=== PATIENT | female | born 1985 | race African-American/Black ===

== ENCOUNTER 2016-06-19 09:56 | Emergency (ER) | payer MEDICAID ==
[~2016-06-19] VITALS: Ht 162.6 cm; Wt 49.9 kg
[~2016-06-19 09:56] MED LIST: AMOXICILLIN500 MG ORAL; CEPHALEXIN500 MG ORAL; IBUPROFEN600 MG ORAL; KEFLEX500 MG ORAL; MACROBID100 MG ORAL; NKM; ZOFRAN ODT4 MG ORAL
[2016-06-19 10:23] VITALS: BP 118/79
[2016-06-19 11:20] LABS: APPEARANCE,URINE SLIGHTLY CLOUDY; KETONES,URINE NEGATIVE (NEGATIVE); LEUKOCYTE ESTERASE ,URINE 3+ (NEGATIVE); NITRITE,URINE POSITIVE (NEGATIVE); PH,URINE 6 (4.5-8.0); PROTEIN,URINE 2+ (NEGATIVE); UROBILINOGEN,URINE NORMAL MG/DL (0.0-1.0)
[2016-06-19 11:33] LABS: BACTERIA,URINE MODERATE /HPF; SQUAMOUS EPITHELIAL CELL,UR FEW /LPF (NONE/OCC); WBC,URINE 20-30 /HPF (0 - 2)
[2016-06-19] MEDS ORDERED: PHENAZOPYRIDIN200 MG ORAL (11:59)
[2016-06-19] MEDS ORDERED: KEFLEX500 MG ORAL (11:59)
[2016-06-19 12:00] VITALS: BP 116/69
[2016-06-19 12:04] VITALS: BP 116/69
--- NOTE | 2016-06-21 13:43 | Emergency Room Report ---
History of Present Illness General Chief Complaint: Female Urogenital Problems Source: Patient Present Illness HPI The patient is a 31-year-old female who presented after increased dysuria as well as frequency of urination. Patient had similar symptoms in the past when she had urinary tract infection. Patient thinks that she has a urinary tract infection at this time. The patient denies any vaginal discharge. Patient has had some mild upper respiratory congestion. She denied chest pain or shortness of breath. The patient had no fever and had not been vomiting. Allergies: Coded Allergies: No Known Allergies (Unverified , 12/17/13) Patient History Past Medical History: see triage record Last Menstrual Period: now- Now: No Reviewed Nursing Documentation: PMH: Agreed, PSxH: Agreed Nursing Documentation-PMH Past Medical History: No History, Except For Hx Cardiac Problems: No Hx Cancer: No Hx Gastrointestinal Problems: No Hx Neurological Problems: No Review of Systems All Other Systems: negative except mentioned in HPI Physical Exam Vital Signs Date Time Temp Pulse Resp B/P Pulse Ox O2 Delivery O2 Flow Rate FiO2 06/19/16 10:12 98.8 16 118/79 99 Room Air 06/19/16 10:23 75 General Appearance: well appearing, no apparent distress, alert, GCS 15 Head: normocephalic, atraumatic ENT: hearing grossly normal, normal voice Neck: full range of motion, supple Respiratory: no respiratory distress, speaking full sentences Gastrointestinal: normal inspection, normal bowel sounds, non tender Genitourinary: normal inspection, no CVA tenderness Musculoskeletal: normal inspection, back normal, no calf tenderness Neurologic: normal inspection, alert, oriented x3, responsive, normal gait Psychiatric: mood/affect normal Skin: no rash Medical Decision Making Diagnostic Impression: Primary Impression: UTI (urinary tract infection) ER Course Patient presented for dysuria. Differential diagnosis included was not limited to appendicitis, urinary tract infection, pelvic inflammatory disease, urethritis, herpes among others. Patient's benign exam and does not appear to require any further imaging or laboratory testing at this time. Urinalysis showed evidence of infection. Patient was given prescription for Keflex.Urine test was negative. The patient is advised to follow up with primary care doctor in 1-2 days. Patient is advised to return if any worsening condition or if any changes in status that are concerning. Last Vital Signs Date Time Temp Pulse Resp B/P Pulse Ox O2 Delivery O2 Flow Rate FiO2 2/13/17 12:04 98.8 69 16 116/69 99 Room Air Status: improved Disposition: HOME, SELF-CARE Condition: Stable Scripts Phenazopyridine Hcl* (PYRIDIUM*) 200 Mg Tablet 200 MG ORAL THREE TIMES A DAY, #14 TAB 0 Refills Prov: Salvador Goodman 06/19/16 Cephalexin* (KEFLEX*) 500 Mg Capsule 500 MG ORAL Q6H, #28 CAP 0 Refills Prov: Salvador Goodman 06/19/16 Referrals: NON PHYSICIAN (PCP) Patient Instructions: Urinary Tract Infection Salvador Goodman Jun 21, 2016 13:43
== END 2016-06-19 12:04 | disposition home or self-care (01) ==
LOC: EMR 10:30
DX: N39.0 Urinary tract infection, site not specified (principal)
CPT/HCPCS: 81003; 81025; 87086; 87181; 99284

== ENCOUNTER 2017-11-16 20:01 | Emergency (ER) | payer MEDICAID, OTHER ==
[~2017-11-16] VITALS: Ht 162.6 cm; Wt 49.9 kg
[~2017-11-16 20:01] MED LIST changes: +PHENAZOPYRIDIN200 MG ORAL
[2017-11-16 20:25] VITALS: BP 112/78
--- NOTE | 2017-11-16 21:42 | Emergency Room Report ---
History of Present Illness General Chief Complaint: Abdominal Pain Source: Patient Present Illness HPI Is a 32-year-old female with no significant past medical history. She presents with initially abdominal pain but to me chief complaint of generalized malaise and weakness. She says she a lot of stress and hasn't been eating much. Decreased appetite for less than a week. Said her urine is dark. Denies any nausea vomiting. Denies any fever chills but not suicidal homicidal. She checked in because she brought her daughter here for rash. Allergies: Coded Allergies: No Known Allergies (Unverified , 12/17/13) Patient History Past Medical History: see triage record, old chart reviewed Past Surgical History: other Pertinent Family History: none Social History: Denies: smoking Last Menstrual Period: UNK Now: No Immunizations: other Reviewed Nursing Documentation: PMH: Agreed; PSxH: Agreed Nursing Documentation-PMH Hx Cardiac Problems: No Hx Cancer: No Hx Gastrointestinal Problems: No Hx Neurological Problems: No Review of Systems Constitutional: Reports: malaise, weakness Eye: Denies: eye pain, blurred vision ENT: Denies: ear pain, nose congestion, throat swelling Respiratory: Denies: cough, shortness of breath Cardiovascular: Denies: chest pain, palpitations Gastrointestinal: Denies: abdominal pain, diarrhea, nausea, vomiting Musculoskeletal: Denies: back pain, joint pain Skin: Denies: rash Neurological: Denies: headache, numbness Endocrine: Denies: increased thirst, increased urine Hematologic/Lymphatic: Denies: easy bruising All Other Systems: negative except mentioned in HPI Physical Exam Vital Signs Date Time Temp Pulse Resp B/P (MAP) Pulse Ox O2 Delivery O2 Flow Rate FiO2 11/16/17 20:16 97.0 61 18 112/78 100 Room Air 97.0 vitals normal Sp02 EP Interpretation: reviewed, normal General Appearance: well appearing, no apparent distress, alert Head: normocephalic, atraumatic Eyes: bilateral eye PERRL, bilateral eye EOMI ENT: hearing grossly normal, normal pharynx Neck: full range of motion, supple, no meningismus Respiratory: chest non-tender, lungs clear, normal breath sounds Cardiovascular #1: regular rate, rhythm, no murmur Gastrointestinal: normal bowel sounds, non tender, no mass, no organomegaly, no bruit, non-distended Musculoskeletal: back normal, gait/station normal, normal range of motion Psychiatric: mood/affect normal Skin: warm/dry Medical Decision Making Diagnostic Impression: Primary Impression: UTI (urinary tract infection) Qualified Codes: N30.00 - Acute cystitis without hematuria Additional Impression: Stress and adjustment reaction ER Course Patient presents with stress reaction. No culture for 5150. She does have a urinary tract infection. We'll put on antibiotics. Last Vital Signs Date Time Temp Pulse Resp B/P (MAP) Pulse Ox O2 Delivery O2 Flow Rate FiO2 11/16/17 20:25 97.0 61 18 112/78 100 Room Air 97.0 Status: unchanged Disposition: HOME, SELF-CARE Condition: Stable Scripts Cephalexin* (KEFLEX*) 500 Mg Capsule 500 MG ORAL TID, #21 CAP Prov: ELIZABETH COOLEY M.D. 11/16/17 Additional Instructions: Follow-up with your doctor in 7 days. Return if symptom worsen. ELIZABETH COOLEY M.D. Nov 16, 2017 21:42
[2017-11-16 21:44] LABS: APPEARANCE,URINE CLEAR; BILIRUBIN, URINE NEGATIVE (NEGATIVE); GLUCOSE, URINE (UA) NEGATIVE (NEGATIVE); KETONES,URINE 3+ (NEGATIVE); LEUKOCYTE ESTERASE ,URINE 2+ (NEGATIVE); NITRITE,URINE POSITIVE (NEGATIVE); PH,URINE 5 (4.5-8.0); PROTEIN,URINE 1+ (NEGATIVE); UROBILINOGEN,URINE NORMAL MG/DL (0.0-1.0)
[2017-11-16 21:49] LABS: COLOR,URINE YELLOW
[2017-11-16] MEDS ORDERED: CEPHALEXIN500 MG ORAL (22:08)
[2017-11-16 22:29] VITALS: BP 112/78
== END 2017-11-16 22:29 | disposition home or self-care (01) ==
LOC: EMR 21:14
DX: N39.0 Urinary tract infection, site not specified (principal); F43.9 Reaction to severe stress, unspecified; R53.1 Weakness
CPT/HCPCS: 81003; 87086; 87181; 99283

== ENCOUNTER 2019-03-05 14:29 | Emergency (ER) | payer SELFPAY ==
[~2019-03-05] VITALS: Ht 160 cm; Wt 49.9 kg
[~2019-03-05 14:29] MED LIST changes: +AUGMENTIN 875-1 EAC1 ORAL
--- NOTE | 2019-03-05 14:41 | NUR ---
ED Nurse Note: PT WALKED IN TO ER TODAY FROM HOME. AOX4. PT C/O LEFT HAND RING FINGER PAIN X YESTERDAY. PT STATES SHE BELIEVES IT MAY BE AN INGROWN NAIL. ON ASSESSMENT, SOME SWELLING AND REDNESS NOTED BUT NO DISCHARGE OR BLEEDING. FULL ROM OF DIGIT. PT DENIES NUMBNESS OR TINGLING.
[2019-03-05 14:42] VITALS: BP 113/75
--- NOTE | 2019-03-05 15:31 | Emergency Room Report ---
History of Present Illness General Chief Complaint: Pain Source: Patient Present Illness HPI 33 YO female presents to the ED c/o 12/14 in severity pain, swelling and erythema to the side of the cuticle of her left ring finger x 2 days. Pt. reports specifically biting a hang nail from there several days prior. Pt. denies trauma or fall. Denies fevers, chills, paresthesias,or finger pad tenderness. Has been trying warm water soaks without relief. Allergies: Coded Allergies: No Known Allergies (Unverified , 02/11/18) Patient History Past Medical History: see triage record Past Surgical History: none Pertinent Family History: none Last Menstrual Period: 01/05/19 Reviewed Nursing Documentation: PMH: Agreed; PSxH: Agreed Nursing Documentation-PMH Past Medical History: No Stated History Hx Cardiac Problems: No Hx Cancer: No Hx Gastrointestinal Problems: No Hx Dialysis: Yes - kidney stone Hx Neurological Problems: No Review of Systems All Other Systems: negative except mentioned in HPI Physical Exam Vital Signs Date Time Temp Pulse Resp B/P (MAP) Pulse Ox O2 Delivery O2 Flow Rate FiO2 03/05/19 14:37 98.2 71 16 113/75 (88) 100 Room Air Sp02 EP Interpretation: reviewed, normal General Appearance: no apparent distress, alert, GCS 15, non-toxic Head: normocephalic, atraumatic Eyes: bilateral eye normal inspection, bilateral eye PERRL ENT: hearing grossly normal, normal voice Neck: full range of motion Respiratory: lungs clear, normal breath sounds, speaking full sentences Cardiovascular #1: regular rate, rhythm, normal capillary refill Musculoskeletal: back normal, gait/station normal, normal range of motion, non- tender Neurologic: alert, oriented x3, responsive, motor strength/tone normal, sensory intact, speech normal, grossly normal Psychiatric: judgement/insight normal Skin: other - left ring finger paronychia- no visible purulence, no fluctuance , no fingerpad tenderness. erythema, swelling and warmth only. Medical Decision Making PA Attestation Dr. Osborne is my supervising Physician whom patient management has been discussed with. Diagnostic Impression: Primary Impression: Paronychia ER Course 33 YO female presents to the ED c/o 12/14 in severity pain, swelling and erythema to the side of the cuticle of her left ring finger x 2 days. Pt. reports specifically biting a hang nail from there several days prior. Pt. denies trauma or fall. Denies fevers, chills, paresthesias,or finger pad tenderness. Has been trying warm water soaks without relief. Ddx considered but are not limited to cellulitis, paronychia, eponychia, ingrown toe nail, fracture, d/L, gout Vital signs: are WNL, pt. is afebrile H&PE are most consistent with left ring finger paronychia- no visible purulence , no fluctuance, no fingerpad tenderness. erythema, swelling and warmth only. ORDERS: none required at this time, the diagnosis is clinical ED INTERVENTIONS: -None provided at this time. DISCHARGE: At this time pt. is stable for d/c to home. Will provide printed patient care instructions, and any necessary prescriptions. Care plan and follow up instructions have been discussed with the patient prior to discharge. Last Vital Signs Date Time Temp Pulse Resp B/P (MAP) Pulse Ox O2 Delivery O2 Flow Rate FiO2 03/05/19 14:42 98.2 71 16 113/75 100 Room Air Disposition: HOME, SELF-CARE Condition: Stable Scripts Amoxicillin/Potassium Clav 875-125* (AUGMENTIN 875-125 TABLET*) 1 Each Tablet 1 TAB ORAL TWICE A DAY for 7 Days, #14 TAB Prov: Sol Sanchez 03/05/19 Mupirocin* (MUPIROCIN*) 22 Gm Oint...g. 1 APPLIC TOPIC THREE TIMES A DAY, #22 GM Prov: Sol Sanchez 03/05/19 Patient Instructions: Paronychia, [id number] Additional Instructions: Take medications as directed. Follow up with a Primary Care Provider in 3-5 days, even if your symptoms have resolved. Return sooner to ED if new symptoms occur, or current symptoms become worse. - Please note that this Emergency Department Report was dictated using [employer] center manager technology software, occasionally this can lead to erroneous entry secondary to interpretation by the dictation equipment. Sol Sanchez Mar 05, 2019 15:31
[2019-03-05] MEDS ORDERED: AUGMENTIN 875-1 EAC1 ORAL (15:34)
[2019-03-05] MEDS ORDERED: MUPIROCIN22 GM TOPIC (15:34)
[2019-03-05 15:51] VITALS: BP 122/74
--- NOTE | 2019-03-05 15:51 | NUR ---
ER DISCHARGE NOTE: Patient is cleared to be discharged per PA, pt is aox4, on room air, with stable vital signs. pt was given dc and prescription instructions, pt was able to verbalize understanding, pt id band removed. pt is able to ambulate with steady gait. pt took all belongings.
== END 2019-03-05 15:51 | disposition home or self-care (01) ==
LOC: EMR 15:29
DX: L03.012 Cellulitis of left finger (principal)
CPT/HCPCS: 99282

== ENCOUNTER 2019-03-30 11:41 | Emergency (ER) | payer SELFPAY ==
[~2019-03-30] VITALS: Ht 160 cm; Wt 49.0 kg
[~2019-03-30 11:41] MED LIST changes: +MUPIROCIN22 GM TOPIC
[2019-03-30] MEDS ORDERED: NKM (11:54)
[2019-03-30 11:57] VITALS: BP 125/78
[2019-03-30 13:38] LABS: APPEARANCE,URINE CLEAR; BILIRUBIN, URINE NEGATIVE (NEGATIVE); GLUCOSE, URINE (UA) NEGATIVE (NEGATIVE); KETONES,URINE 4+ (NEGATIVE); LEUKOCYTE ESTERASE ,URINE 2+ (NEGATIVE); NITRITE,URINE POSITIVE (NEGATIVE); PH,URINE 5 (4.5-8.0); PROTEIN,URINE 1+ (NEGATIVE); UROBILINOGEN,URINE NORMAL MG/DL (0.0-1.0)
[2019-03-30 13:50] LABS: COLOR,URINE YELLOW
[2019-03-30 13:57] VITALS: BP 130/80
--- NOTE | 2019-03-30 15:47 | Emergency Room Report ---
History of Present Illness General Chief Complaint: Vomiting Source: Patient Present Illness HPI 33-year-old female who is G3, P2 and no significant past medical history here complaining of 2 days of multiple bouts of nonbloody emesis and nausea. Patient denies abdominal pain, diarrhea and constipation, fever and chills. Denies drinking alcohol, or intake of new food. Denies recent travel or antibiotic use. Patient also has her daughter who presents with similar symptoms x2 days. Patient denies any urinary frequency, dysuria, hematuria reports that she does not recall her last menstrual period and reports that she took an IUD out about 1 month ago had few episodes of spotting right after however has not had her menses since. Denies chest pain, shortness of breath, palpitation, headache, dizziness. No tenderness or guarding noted upon palpation of her abdomen. Allergies: Coded Allergies: No Known Allergies (Unverified , 02/11/18) Patient History Past Medical History: see triage record Past Surgical History: unable to obtain Pertinent Family History: none Now: No Immunizations: UTD Reviewed Nursing Documentation: PMH: Agreed; PSxH: Agreed Nursing Documentation-PMH Past Medical History: No History, Except For Hx Cardiac Problems: No Hx Cancer: No Hx Gastrointestinal Problems: No Hx Dialysis: Yes - kidney stone Hx Neurological Problems: No Review of Systems All Other Systems: negative except mentioned in HPI Physical Exam Vital Signs Date Time Temp Pulse Resp B/P (MAP) Pulse Ox O2 Delivery O2 Flow Rate FiO2 03/30/19 11:51 98.4 60 20 117/75 (89) 100 Room Air Sp02 EP Interpretation: reviewed, normal General Appearance: no apparent distress, alert, GCS 15, non-toxic Head: normocephalic, atraumatic Eyes: bilateral eye normal inspection, bilateral eye PERRL ENT: hearing grossly normal, normal pharynx, no angioedema, normal voice Neck: full range of motion, supple, supple/symm/no masses Respiratory: chest non-tender, lungs clear, normal breath sounds, no rhonchi, no respiratory distress, speaking full sentences Cardiovascular #1: regular rate, rhythm, no edema, no murmur, normal capillary refill Cardiovascular #2: 2+ carotid (R), 2+ carotid (L), 2+ radial (R), 2+ radial (L) Gastrointestinal: normal bowel sounds, non tender, soft, no mass, non-distended , no guarding, no hernia, no pulsatile mass, no rebound Rectal: deferred Genitourinary: normal inspection, no CVA tenderness Musculoskeletal: back normal, normal range of motion, no calf tenderness, pelvis stable, gait/station normal, non-tender Neurologic: alert, motor strength/tone normal, oriented x3, sensory intact, responsive, speech normal Psychiatric: judgement/insight normal, memory normal, mood/affect normal, no suicidal/homicidal ideation Skin: no rash Lymphatic: no adenopathy Medical Decision Making PA Attestation All my diagnosis and treatment plans were reviewed ad discussed with my supervising physician Dr. Singer Diagnostic Impression: Primary Impression: Positive test Additional Impressions: Vomiting during UTI (urinary tract infection) ER Course 33-year-old female who is G3, P2 and no significant past medical history here complaining of 2 days of multiple bouts of nonbloody emesis and nausea. Patient denies abdominal pain, diarrhea and constipation, fever and chills. Denies drinking alcohol, or intake of new food. Denies recent travel or antibiotic use. Patient also has her daughter who presents with similar symptoms x2 days. Patient denies any urinary frequency, dysuria, hematuria reports that she does not recall her last menstrual period and reports that she took an IUD out about 1 month ago had few episodes of spotting right after however has not had her menses since. Denies chest pain, shortness of breath, palpitation, headache, dizziness. No tenderness or guarding noted upon palpation of her abdomen. Ddx considered but are not limited to: UTI, pyelonephritis, threatened , ectopic , molar , Vital signs: are WNL, pt. is afebrile H&PE are most consistent with: Uncomplicated UTI, vomiting during , positive test ORDERS: UA, beta hCG, CBC, CMP, type and screen, OB ultrasound, vitamins, Macrobid, Reglan ED INTERVENTIONS: NS bolus, Reglan DISCHARGE: At this time pt. is stable for d/c to home. Will provide printed patient care instructions, and any necessary prescriptions. Care plan and follow up instructions have been discussed with the patient prior to discharge. Take medication as directed, follow-up with your FIREBOAT OPERATOR as you are beta-hCG levels are elevated and may be falsely elevated however your 6 weeks and to need to have establish FIREBOAT OPERATOR for further evaluation during her . If worsening symptoms return to emergency room. CT/MRI/US Diagnostic Results CT/MRI/US Diagnostic Results : Imaging Test Ordered: OB ultrasound Impression US OB 1st TRIMESTER: Single live IUP approximately 6 weeks 1 day. heart rate 117 bpm. Exam otherwise unremarkable. Last Vital Signs Date Time Temp Pulse Resp B/P (MAP) Pulse Ox O2 Delivery O2 Flow Rate FiO2 03/30/19 11:57 98.4 65 19 125/78 100 Room Air Disposition: HOME, SELF-CARE Condition: Stable Scripts Nitrofurantoin Monohyd/M-Cryst* (MACROBID 100 MG*) 100 Mg Capsule 100 MG ORAL EVERY 12 HOURS for 7 Days, #14 CAP Prov: Karen Galo 03/30/19 No.137/Iron/Folic Acd ( Vitamin Tablet) 1 Each Tablet 1 EACH PO DAILY, #30 TAB Prov: Karen Galo 03/30/19 Metoclopramide Hcl* (REGLAN*) 5 Mg Tablet 5 MG ORAL EVERY 6 HOURS, #20 TAB Prov: Karen Galo 03/30/19 Referrals: NON PHYSICIAN (PCP) Patient Instructions: Nausea and Vomiting, Adult, Test Information, Urinary Tract Infection, [id number] Additional Instructions: Take medication as directed, follow-up with your primary care provider, establish an FIREBOAT OPERATOR, started vitamins today if worsening symptoms return to the emergency room Karen Galo Mar 30, 2019 15:46
[2019-03-30] MEDS ORDERED: NITROFURANTOIN100 M2 ORAL (15:48)
[2019-03-30] MEDS ORDERED: PRENATAL VITAM1 EA10 PO (15:48)
[2019-03-30] MEDS ORDERED: REGLAN5 MG ORAL (15:48)
[2019-03-30 15:57] VITALS: BP 128/92
[2019-03-30] MEDS ORDERED: Metoclopramide 10mg/2ml Inj IVP ONE (16:30)
[2019-03-30 16:56] LABS: ANION GAP 9 mmol/L (5-15); BLOOD UREA NITROGEN 12 mg/dL (7-18); CALCIUM 8.3 MG/DL (8.5-10.1); CARBON DIOXIDE 22 MMOL/L (21-32); CHLORIDE 103 MMOL/L (98-107); CREATININE 0.8 MG/DL (0.55-1.30); POTASSIUM 3.8 MMOL/L (3.5-5.1); SODIUM 134 MMOL/L (136-145)
[2019-03-30 17:01] LABS: ALANINE AMINOTRANSFERASE 22 U/L (12-78); ALBUMIN 3.5 G/DL (3.4-5.0); ALKALINE PHOSPHATASE 45 U/L (46-116); ASPARTATE AMINO TRANSFERASE 18 U/L (15-37); BILIRUBIN,TOTAL 0.6 MG/DL (0.2-1.0)
[2019-03-30 17:02] LABS: BASOPHILS % (AUTO) 0.4 % (0.0-2.0); EOSINOPHILS % (AUTO) 0.2 % (0.0-3.0); HEMATOCRIT 34.3 % (37.0-47.0); HEMOGLOBIN 11.7 G/DL (12.0-16.0); LYMPHOCYTES % (AUTO) 20.3 % (20.0-45.0); MEAN CORPUSCULAR VOLUME 86 FL (80-99); MONOCYTES % (AUTO) 6.6 % (1.0-10.0); NEUTROPHILS % (AUTO) 72.5 % (45.0-75.0); PLATELET COUNT 199 K/UL (150-450); RED CELL DISTRIBUTION WIDTH 11.1 % (11.6-14.8); WHITE BLOOD COUNT 9.1 K/UL (4.8-10.8)
[2019-03-30 17:48] VITALS: BP 135/98
--- NOTE | 2019-03-30 19:55 | Diagnostic Imaging Report ---
Indication: Pelvic pain. 33-year-old female Technique: Grayscale and duplex Doppler imaging of the pelvis performed utilizing a transabdominal scan and endovaginal scan. Comparison: None Findings: There is a single living IUP 6 weeks one day gestational age based on crown-rump length. heart tones demonstrated. Yolk sac noted. There is mild free fluid within the cul-de-sac. Both ovaries are seen and show dopplerable blood flow. The left ovary measures 4.1 x 3 x 2.5 cm. The right ovary measures 3.7 x 2.4 x 2.0 cm. IMPRESSION: Single living IUP 6 weeks one day gestational age.
== END 2019-03-30 17:48 | disposition home or self-care (01) ==
LOC: EMR 12:05
DX: O21.9 Vomiting of pregnancy, unspecified (principal); O23.41 Unspecified infection of urinary tract in pregnancy, first trimester; Z3A.01 Less than 8 weeks gestation of pregnancy; Z87.442 Personal history of urinary calculi
CPT/HCPCS: 36415; 76801; 76830; 80053; 81003; 81025; 84702; 85025; 86850; 86900; 86901; 96361; 96374; 96375; 99284; J2405; J2765; J7030; J7040